=== PATIENT | female | born 1965 | race Caucasian/White ===

== ENCOUNTER → 2018-08-20 17:57 | Outpatient (CLI) | payer MEDICARE, OTHER ==
[2016-02-16 10:12] VITALS: BMI 29.2
[~2018-08-20 17:57] MED LIST: FLAGYL500 MG PO; FLORAJEN3 CAPS460 MG PO; INDERAL10 MG PO; KLONOPIN1 MG PO; LEVAQUIN750 MG PO; MOBIC7.5 MG PO; NEURONTIN 300300 MG PO; OMEPRAZOLE20 M1 PO; PHENERGAN25 M1 PO; PROZAC10 MG PO; TEMAZEPAM30 MG PO; WELLBUTRIN XL150 M1 PO; ZANAFLEX4 MG PO; ZETIA10 MG PO; ZOCOR40 MG PO
== END | disposition home or self-care (01) ==
LOC: D.MAMMO 14:30
PROVIDERS: ATTEND Family Medicine
DX: N63.10 Unspecified lump in the right breast, unspecified quadrant (principal)